=== PATIENT | male | born 1970 | race Caucasian/White ===

== ENCOUNTER 2020-06-07 01:54 | Observation (INO) ==
[2020-06-07] MEDS ORDERED: 0.9 % Sodium Chloride 1,000 ML IVC ONE ×2 (02:13→05:10)
[2020-06-07] MEDS ORDERED: Aspirin 81 MG TAB.CHEW PO ONE (02:14)
[2020-06-07 02:35] LABS: Basophils % 0.5 %; Eosinophils # 0.3 K/mcL (0.0-0.6); Eosinophils % 3.9 %; Hematocrit 36.1 % (37.5-50.1); Hemoglobin 12.3 g/dL (12.9-16.9); Immature Granulocytes % 0.6 % (0-4); Lymphocytes # 2.1 K/mcL (0.6-4.6); Lymphocytes % 27.1 %; Mean Corpuscular HGB Conc 34.1 g/dL (31.6-35.5); Mean Corpuscular Hemoglobin 30.8 pg (28.0-33.3); Mean Corpuscular Volume 90.3 fL (83.0-100.0); Mean Platelet Volume 9.6 fL (9.4-12.4); Monocytes # 0.6 K/mcL (0.0-1.3); Monocytes % 8.3 %; Neutrophils # 4.6 K/mcL (1.6-8.9); Platelet Count 227 K/mcL (140-400); Red Cell Distribution Width 13.2 % (11.5-14.5); Segmented Neutrophils % 59.6 %; White Blood Count 7.7 K/mcL (4.3-11.1)
[2020-06-07 02:39] LABS: INR 1.1; Prothrombin Time 12.8 Seconds (9.4-12.1)
[2020-06-07 02:42] LABS: Activated Partial Thrombo Time 27.9 Seconds (26.0-36.0)
[2020-06-07 02:57] LABS: Alanine Aminotransferase 14 Units/L (7-52); Albumin 4.1 g/dL (3.5-5.7); Albumin/Globulin Ratio 1.6 (1.1-2.2); Alkaline Phosphatase 59 Units/L (34-104); Aspartate Amino Transferase 24 Units/L (13-39); BUN/Creatinine Ratio 9 (6-26); Bilirubin,Total 0.6 mg/dL (0.3-1.0); Blood Urea Nitrogen 6 mg/dL (6-20); Calcium 8.7 mg/dL (8.6-10.3); Carbon Dioxide 27 mEq/L (23-29); Chloride 103 mEq/L (98-107); Creatine Kinase 492 Units/L (30-223); Globulin 2.6 g/dL (2.4-3.5); Glucose 106 mg/dL (70-105); Osmolality,Calculated 284 (280-300); Potassium 3.1 mEq/L (3.5-5.1); Sodium 138 mEq/L (136-145); Total Protein 6.7 g/dL (6.4-8.9); Troponin I < 0.03 ng/mL (< 0.04); eGFR For African Americans > 60 (> 60); eGFR For Non-African Americans > 60 (> 60)
[2020-06-07] MEDS ORDERED: Isovue-370 500 ML BOTTLE IVP ONE (03:16)
[2020-06-07 03:46] LABS: Bacteria,Urine Few per hpf (None-Few); Bilirubin,Urine Negative (Negative); Blood,Urine Moderate (Negative); Clarity,Urine Clear (Clear); Color,Urine Yellow (Yellow); Glucose,Urine (UA) Normal (Normal); Ketones,Urine Negative (Negative); Leukocyte Esterase,Urine Negative (Negative); Mucus,Urine Few per lpf (None-Few); Nitrite,Urine Negative (Negative); Protein,Urine Trace mg/dL (Neg-Trace); RBC,Urine 30-50 per hpf (0-3); Specific Gravity,Urine 1.023 (1.010-1.025); Squamous Epithelial Cell,Urine Few per hpf (None-Few); WBC,Urine 0-3 per hpf (0-3)
[2020-06-07 04:55] LABS: Influenza A PCR Negative (Negative); Influenza B PCR Negative (Negative); Resp. Syncytial Virus PCR Negative (Negative)
[2020-06-07 04:57] LABS: SARS-CoV-2 by PCR (In House) Negative (Negative)
[2020-06-07 05:42] LABS: Amphetamine Screen,Urine Negative ng/mL (Cutoff=1000); Barbiturate Screen,Urine Negative ng/mL (Cutoff=200); Benzodiazepines Screen,Urine Negative ng/mL (Cutoff=200); Cannabinoid Screen,Urine Positive ng/mL (Cutoff = 50); Cocaine Screen,Urine Negative ng/mL (Cutoff= 300); Opiate Screen,Urine Negative ng/mL (Cutoff=300); Phencyclidine Screen,Urine Negative ng/mL (Cutoff=25)
[2020-06-07] MEDS ORDERED: Naloxone 0.4 MG/ML INJ IVP PRN (06:09)
[2020-06-07] MEDS ORDERED: Ondansetron 4 MG/2 ML VIAL IVP PRN (06:09)
[2020-06-07] MEDS ORDERED: Perflutren Lipid Microsphere 1.3 ML in 0.9 % Sodium Chloride 8.7 ML IVP PRN (06:14)
[2020-06-07] MEDS ORDERED: Ringers Solution, Lactated 1,000 ML IVC SCH (06:15)
[2020-06-07] MEDS ORDERED: Ipratropium/Albuterol Neb 3 ML IH PRN (06:51)
[2020-06-07 07:53] LABS: Chol/HDL Ratio 4.4 (0-4.9); Magnesium 1.8 mg/dL (1.6-2.6)
[2020-06-07 07:55] LABS: % Iron Saturation 13 % (20-55); Iron 30 mcg/dL (65-175); Transferrin 168 mg/dL (203-362)
[2020-06-07 08:09] LABS: Ferritin 71 ng/mL (20-250)
[2020-06-07 08:16] LABS: Folate 9.1 ng/mL (3.0-16.0)
[2020-06-07 09:43] LABS: Creatine Kinase 462 Units/L (30-223)
[2020-06-07 10:16] VITALS: BP 112/81
[2020-06-07 13:47] LABS: Creatine Kinase 587 Units/L (30-223); Troponin I < 0.03 ng/mL (< 0.04)
== END 2020-06-07 13:27 | disposition home or self-care (01) ==
LOC: CDU 01:54 → EMEROOARM 01:54 → SUATTDRO 05:57 → CDU 06:26
PROVIDERS: ADMIT Internal Medicine; ATTEND Internal Medicine